=== PATIENT | female | born 2000 | race Asian ===

== ENCOUNTER 2021-05-03 17:48 | Inpatient (IN) ==
[2021-05-03 18:53] LABS: ABS Eosinophils 0.1 10^3/ul (0-0.6); ABS Lymphocytes 0.9 10^3/ul (1.0-4.8); ABS Monocytes 0.3 10^3/ul (0-0.8); ABS Neutrophils 5.2 10^3/ul (1.5-7.7); Eosinophil % 1.4 %; Hematocrit 37 % (35-47); Hemoglobin 12.5 g/dL (12.0-16.0); Lymphocyte % 13.5 %; Mean Corpuscular HGB Conc 34 g/dL (31-36); Mean Corpuscular Hemoglobin 30 pg (27-31); Mean Corpuscular Volume 87 fL (80-97); Mean Platelet Volume 7.4 fL (7.4-10.4); Platelet Count 319 10^3/uL (150-450); Red Blood Count 4.21 10^6 /uL (3.70-4.87); Red Cell Distribution Width 15 % (10-15); White Blood Count 6.5 10^3/uL (3.5-10.8)
[2021-05-03 19:11] LABS: ALT 17 U/L (7-52); AST 14 U/L (13-39); Albumin 4.6 g/dL (3.2-5.2); Albumin/Globulin Ratio 1.9 (1-3); Alkaline Phosphatase 52 U/L (35-149); Anion Gap 7 mmol/L (2-11); Blood Urea Nitrogen 10 mg/dL (6-24); CO2 Carbon Dioxide 27 mmol/L (22-32); Calcium 9.4 mg/dL (8.6-10.3); Chloride 103 mmol/L (101-111); Globulin 2.4 g/dL (2-4); Glucose 95 mg/dL (70-100); Potassium 3.2 mmol/L (3.5-5.0); Sodium 137 mmol/L (135-145)
[2021-05-03 19:17] LABS: HCG Pregnancy < 0.60 mIU/mL
[2021-05-03 20:03] LABS: Urine Benzodiazepine Screen None Detected (None Detect); Urine Cannabinoids Screen None Detected (None Detect); Urine Opiates Screen None Detected (None Detect)
[2021-05-03] MEDS: Lidocaine/Epineph/Tetraca GEL 3 ML GEL IN SYR TOPICAL ONE (21:40)
[2021-05-03 22:41] LABS: Rapid COVID-19 Molecular Undetected (Undetected)
[2021-05-03] MEDS: Potassium Chlor 20 meq TAB.ER PO ONE (22:52)
[2021-05-04] MEDS ORDERED: Al Hydrox/Mg Hydrox/Simet LIQ 30 ML UDC PO PRN (00:12)
[2021-05-04 00:44] LABS: Acetaminophen < 15 mcg/mL; Alcohol, S < 13 mg/dL (<13); Salicylate < 2.50 mg/dL (<30)
[2021-05-04] MEDS: Lidocaine/Epineph/Tetraca GEL 3 ML GEL IN SYR TOPICAL ONE (01:34)
[2021-05-04 08:25] LABS: HDL Cholesterol 60.1 mg/dL
[2021-05-04] MEDS: Vitamin THERAPEUTIC TAB PO SCH (09:04)
[2021-05-05] MEDS: Vitamin THERAPEUTIC TAB PO SCH (09:35)
[2021-05-05 09:43] VITALS: BP 96/58
== END 2021-05-05 16:52 | disposition home or self-care (01) | DRG 885 ==
LOC: ED 17:48 → BSU 22:32
PROVIDERS: ADMIT Psychiatry & Neurology Psychiatry; ATTEND Psychiatry & Neurology Psychiatry